=== PATIENT | female | born 1970 | race African-American/Black ===

== ENCOUNTER 2017-11-03 10:47 | Emergency (ER) | payer OTHER ==
[2017-11-03] MEDS ORDERED: Ketorolac Tromethamine 30 MG/ML VIAL ONE (11:19)
[2017-11-03 11:24] LABS: #Eosinphils 0.2 thou/uL (0.0-0.7); #Lymphocytes 2.1 thou/uL (1.20-3.40); #Monocytes 0.4 thou/uL (0.11-0.59); #Neutrophils 2.6 thou/uL (1.40-6.50); %Basophils 0.2 % (0.0-1.0); %Eosinophils 4.2 % (0.0-10.0); %Lymphocytes 38.6 % (21.0-51.0); Hemoglobin 12.4 g/dL (12.0-16.0); Mean Corpuscular HGB CONC 31.7 g/dL (32.0-36.0); Mean Corpuscular Hemoglobin 28.3 pg (27.0-31.0); Mean Corpuscular Volume 89.3 fl (81.0-99.0); Mean Platelet Volume 7.9 fL (7.4-10.4); Platelet Count 203 thou/uL (130-400); RBC Distribution Width 11.4 % (11.5-14.5); White Blood Cell (WBC) Count 5.4 thou/uL (4.8-10.8)
[2017-11-03 11:45] LABS: ALT (SGPT) 11 U/L (8-55); AST (SGOT) 13 U/L (5-34); Albumin 3.4 g/dL (3.5-5.0); Alkaline Phosphatase 50 U/L (40-150); Anion Gap 10 mmol/L (10-20); BUN (Urea Nitrogen) 12 mg/dL (7.0-18.7); Bilirubin, Total 0.3 mg/dL (0.2-1.2); Calc. Creatinine Clearance 0 mL/min (70-130); Calcium 8.6 mg/dL (7.8-10.44); Carbon Dioxide 23 mmol/L (22-29); Chloride 108 mmol/L (98-107); Estimated GFR-MDRD Greater than 90; Globulin 3.2 g/dL (2.4-3.5); Glucose 77 mg/dL (70-105); Potassium 3.6 mmol/L (3.5-5.1); Protein, Total 6.6 g/dL (6.0-8.3); Sodium 137 mmol/L (136-145)
[2017-11-03 11:50] LABS: CKMB 0.5 ng/mL (0-6.6); Troponin I Less than 0.010 ng/mL (< 0.028)
--- NOTE | 2017-11-03 12:05 | RAD ---
PORTABLE CHEST ONE VIEW: Date: 11-03-17 Time: 11:21 a.m. History: Chest pain, cough. FINDINGS: Comparison made with exam of 03-23-17. The heart size is enlarged. No confluent areas of consolidation, pneumothorax, hortencia pleural edema or pleural effusions are seen. IMPRESSION: No radiographic evidence of acute cardiopulmonary process. POS: [facility]
== END 2017-11-03 12:12 | disposition home or self-care (01) ==
LOC: ERS 10:47
DX: B34.9 Viral infection, unspecified (principal); R07.9 Chest pain, unspecified; I10 Essential (primary) hypertension; F32.9 Major depressive disorder, single episode, unspecified; F41.9 Anxiety disorder, unspecified; Z79.899 Other long term (current) drug therapy
CPT/HCPCS: 36415; 71045; 80053; 82553; 84484; 85025; 93005; J1885

== ENCOUNTER 2017-11-17 08:10 | Outpatient (CLI) | payer OTHER | END 2017-11-17 08:11 | disposition home or self-care (01) | LOC: BICMAMMO 08:10 | PROVIDERS: ATTEND Anesthesiology | DX: R92.8 Other abnormal and inconclusive findings on diagnostic imaging of breast (principal); Z53.8 Procedure and treatment not carried out for other reasons | CPT/HCPCS: 77066; G0279 ==

== ENCOUNTER 2018-04-13 10:09 | Outpatient (CLI) | payer OTHER ==
--- NOTE | 2018-04-13 12:44 | MRI ---
MRI LUMBAR SPINE WITHOUT CONTRAST: Date: 04/13/18 HISTORY: M54.16, lumbar radiculopathy. COMPARISON: None. FINDINGS: The aortic contour is nonaneurysmal. No retroperitoneal adenopathy. Paraspinal musculature is symmetr ic. No hydronephrosis. The background marrow signal is without infiltrative process. Normal lumbar lordosis. The conus medullaris terminates at the superior end plate of L1. Levels are as follows: T12-L1: Normal disc. No neural foraminal or spinal canal narrowing. L1-2: Normal disc. No neural foraminal or spinal canal narrowing. There is hemangioma within the L1 vertebr al body. L2-3: Normal disc. No neural foraminal or spinal canal narrowing. There is a T1 and T2 hyperintense focus w ithin the spinous process suggesting fat. L3-4: There is low grade disc desiccation. Low grade left lateral recess and subforaminal and posterior dis c protrusion causing mild left-sided neural foraminal narrowing. The spinal canal measures approximat rebecca 8.0 mm. L4-5: Moderate disc desiccation. There is a central posterior disc protrusion with paracentral extension. S geronimo canal measures approximately 9.0 mm. Mild bilateral neural foraminal narrowing. Moderate facet arthrosis. L5-S1: Moderate disc desiccation. There is essential posterior disc protrusion. Mild facet arthrosis. Mild t o moderate bilateral neural foraminal narrowing. IMPRESSION: Mild to moderate spondylosis as described above. POS: [facility]
== END 2018-04-13 10:10 | disposition home or self-care (01) ==
LOC: TBSIIMAG 10:09
PROVIDERS: ATTEND Orthopaedic Surgery
DX: M47.26 Other spondylosis with radiculopathy, lumbar region (principal); M54.5 Low back pain
CPT/HCPCS: 72148

== ENCOUNTER 2018-12-16 10:01 | Outpatient (CLI) | payer OTHER ==
--- NOTE | 2018-12-16 10:29 | RAD ---
CHEST 2 VIEWS: Date: 12/16/18 COMPARISON: 11/03/17. HISTORY: Dyspnea. FINDINGS: Minimal cardiomegaly. No confluent pneumonia, overt edema, or pleural effusion. IMPRESSION: Mild cardiomegaly. No evidence for other significant acute process. Atherosclerosis of aorta. POS: [facility]
== END 2018-12-16 10:02 | disposition home or self-care (01) ==
LOC: RAD 10:01
PROVIDERS: ATTEND Internal Medicine Critical Care Medicine
DX: R06.00 Dyspnea, unspecified (principal); I51.7 Cardiomegaly; I70.0 Atherosclerosis of aorta
CPT/HCPCS: 71046

== ENCOUNTER 2018-12-21 09:08 | Outpatient (CLI) | payer OTHER | END 2018-12-21 09:09 | disposition home or self-care (01) | LOC: DTY/OP 09:08 | PROVIDERS: ATTEND Specialist | DX: Z01.818 Encounter for other preprocedural examination (principal); E66.01 Morbid (severe) obesity due to excess calories | CPT/HCPCS: 97802 ==

== ENCOUNTER 2019-01-04 08:41 | Outpatient (CLI) | payer OTHER ==
--- NOTE | 2019-01-04 09:11 | MMO ---
Bilateral MAMMO Bilat Screen DDI. CLINICAL HISTORY: Patient is 48 years old and is seen for screening. The patient has no family history of breast cancer. The patient has no personal history of cancer. VIEWS: The views performed were: bilateral craniocaudal and bilateral mediolateral oblique. FILMS COMPARED: The present examination has been compared to prior imaging studies performed at [facility] on 11/17/2017, and at [facility] on 10/05/2014 and 10/17/2014. This study has been interpreted with the assistance of computer-aided detection. MAMMOGRAM FINDINGS: There are scattered fibroglandular densities. There are two stable oval masses with circumscribed margins seen in the right breast. There are no suspicious masses, suspicious calcifications, or new areas of architectural distortion. IMPRESSION: THERE IS NO MAMMOGRAPHIC EVIDENCE OF MALIGNANCY. A ROUTINE FOLLOW-UP MAMMOGRAM IN 1 YEAR IS RECOMMENDED. ACR BI-RADS Category 2 - Benign finding MAMMOGRAPHY NOTE: 1. A negative mammogram report should not delay a biopsy if a dominant of clinically suspicious mass is present. 2. Approximately 10% to 15% of breast cancers are not detected by mammography. 3. Adenosis and dense breasts may obscure an underlying neoplasm.
== END 2019-01-04 08:42 | disposition home or self-care (01) ==
LOC: BICMAMMO 08:41
PROVIDERS: ATTEND Family Medicine
DX: Z12.31 Encounter for screening mammogram for malignant neoplasm of breast (principal)
CPT/HCPCS: 77067

== ENCOUNTER 2019-02-16 22:16 | Observation (INO) | payer OTHER ==
[2019-02-16] MEDS ORDERED: Albuterol Sulfate 2.5 mg/3 ml Neb ONE (22:30)
[2019-02-16] MEDS ORDERED: Magnesium 2 GM/50 ML BAG (IN WATER) ONE (22:37)
[2019-02-16] MEDS ORDERED: Dexamethasone 10 MG/ML VIAL ONE (22:39)
[2019-02-16 22:43] LABS: Actual Bicarbonate (HCO3a) 20.7 mEq/L (22-28); Analyzer IN Cardio ER; Base Excess (BEa) -4.5 mEq/L (-2.0 to +3.0); CO2 Tension 38.5 mmHg (35.0-45.0); Calcium, Ionized 1.19 mmol/L (1.12-1.30); Carboxyhemoglobin (COHb) 0.3 gm% (0.0-3.0); Hemoglobin (Hb) 13.3 g/dL (12.0-16.0); O2 Tension (PaO2) 178.3 mmHg (80.0-100.0); Potassium - ABG Lab 3.28 mmol/L (3.70-5.30); pH, Arterial 7.35 (7.35-7.45)
--- NOTE | 2019-02-16 22:45 | RAD ---
PORTABLE CHEST: 02/16/19 HISTORY: Dyspnea. COMPARISON: 11/03/17. Lungs appear clear. No infiltrate. Heart size is mildly prominent but stable. IMPRESSION: No acute process. POS: [facility]
[2019-02-16 22:47] LABS: ALV-art Gradient -76.695 (0-20); Puncture Site LRA
[2019-02-16 23:04] LABS: #Basophils 0.1 thou/uL (0.0-0.2); #Eosinphils 0.5 thou/uL (0.0-0.7); #Lymphocytes 3.1 thou/uL (1.20-3.40); #Monocytes 0.5 thou/uL (0.11-0.59); #Neutrophils 3.9 thou/uL (1.40-6.50); %Basophils 1.4 % (0.0-1.0); %Eosinophils 5.8 % (0.0-10.0); %Lymphocytes 38.6 % (21.0-51.0); %Monocytes 6.2 % (0.0-10.0); Hemoglobin 12.8 g/dL (12.0-16.0); Mean Corpuscular HGB CONC 32.2 g/dL (32.0-36.0); Mean Corpuscular Hemoglobin 28.1 pg (27.0-31.0); Mean Corpuscular Volume 87.1 fL (78.0-98.0); Mean Platelet Volume 7.9 fL (7.4-10.4); Platelet Count 202 thou/uL (130-400); RBC Distribution Width 11.7 % (11.5-14.5); Red Blood Cell (RBC) Count 4.57 mill/uL (4.20-5.40); White Blood Cell (WBC) Count 8.1 thou/uL (4.8-10.8)
[2019-02-16 23:26] LABS: ALT (SGPT) 10 U/L (8-55); AST (SGOT) 12 U/L (5-34); Alkaline Phosphatase 62 U/L (40-150); Anion Gap 15 mmol/L (10-20); BUN (Urea Nitrogen) 14 mg/dL (7.0-18.7); Bilirubin, Total 0.3 mg/dL (0.2-1.2); CK (CPK) 88 U/L (29-168); Calc. Creatinine Clearance 0 mL/min (70-130); Calcium 9.1 mg/dL (7.8-10.44); Carbon Dioxide 23 mmol/L (22-29); Chloride 103 mmol/L (98-107); Estimated GFR-MDRD Greater than 90; Glucose 83 mg/dL (70-105); Lipase 18 U/L (8-78); Potassium 3.6 mmol/L (3.5-5.1); Sodium 137 mmol/L (136-145)
[2019-02-17 00:48] VITALS: BMI 43.9
[2019-02-17] MEDS ORDERED: Sodium Chloride 0.9% 1,000 ML IV SCH (00:54)
[2019-02-17] MEDS ORDERED: Ondansetron ODT 4 MG TAB SL PRN (00:54)
[2019-02-17] MEDS ORDERED: Ondansetron PF 4 MG/2 ML Vial IVP PRN (00:54)
[2019-02-17] MEDS ORDERED: Acetaminophen 650 MG Suppository PR PRN (01:08)
[2019-02-17] MEDS ORDERED: Senokot S 8.6-50 MG TAB PO PRN (01:08)
[2019-02-17] MEDS: Acetaminophen 325 MG TAB PO PRN ×3 (01:31→20:50)
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
[2019-02-17 05:56] LABS: #Lymphocytes 0.8 thou/uL (1.20-3.40); #Monocytes 0.1 thou/uL (0.11-0.59); #Neutrophils 4.2 thou/uL (1.40-6.50); %Basophils 0.2 % (0.0-1.0); %Eosinophils 0.2 % (0.0-10.0); %Monocytes 1.7 % (0.0-10.0); %Neutrophils 82.9 % (42.0-75.0); Hemoglobin 11.9 g/dL (12.0-16.0); Mean Corpuscular HGB CONC 32.5 g/dL (32.0-36.0); Mean Corpuscular Hemoglobin 28.2 pg (27.0-31.0); Mean Corpuscular Volume 86.7 fL (78.0-98.0); Mean Platelet Volume 8.7 fL (7.4-10.4); Platelet Count 190 thou/uL (130-400); RBC Distribution Width 11.7 % (11.5-14.5); Red Blood Cell (RBC) Count 4.21 mill/uL (4.20-5.40); White Blood Cell (WBC) Count 5.1 thou/uL (4.8-10.8)
[2019-02-17 06:13] LABS: Anion Gap 10 mmol/L (10-20); BUN (Urea Nitrogen) 13 mg/dL (7.0-18.7); Calc. Creatinine Clearance 193 mL/min (70-130); Calcium 8.9 mg/dL (7.8-10.44); Carbon Dioxide 24 mmol/L (22-29); Chloride 106 mmol/L (98-107); Estimated GFR-MDRD Greater than 90; Glucose 122 mg/dL (70-105); Potassium 3.5 mmol/L (3.5-5.1); Sodium 136 mmol/L (136-145)
[2019-02-17] MEDS: Benzonatate 100 MG CAP PO SCH ×3 (08:07→19:39)
[2019-02-17] MEDS: guaiFENesin ER 600 MG TAB PO SCH ×2 (08:08→19:39)
[2019-02-17] MEDS: Furosemide 20 MG TAB PO SCH (08:08)
[2019-02-17] MEDS: Famotidine/PF 20 mg/2ml Vial SLOW IVP SCH ×2 (08:08→19:39)
[2019-02-17] MEDS: Propranolol HCl 20 MG TAB PO SCH ×2 (08:08→19:39)
[2019-02-17] MEDS: Enoxaparin Sodium 30 MG/0.3 ML SYRINGE SC SCH (08:09)
[2019-02-17] MEDS ORDERED: Dexamethasone 4 mg/ml Vial SLOW IVP SCH (09:00)
[2019-02-17] MEDS: Doxycycline 100 MG CAP PO SCH ×2 (10:47→19:39)
--- NOTE | 2019-02-17 11:14 | PDOC.PN ---
- Subjective Encounter Start Date: 02/17/19 Encounter Start Time: 09:00 -: old records requested/rev pt has dry cough, dyspnea and chest wall pain from coughing - Objective Resuscitation Status - Order Detail: 02/17/19 01:08 Resuscitation Status Routine Co-Sign Provider: Resuscitation Status: FULL: Full Resuscitation MAR Reviewed: Yes Vital Signs & Weight: Vital Signs (12 hours) Temp Pulse Resp BP Pulse Ox 02/17/19 10:32 81 18 98 02/17/19 07:34 97.8 F 79 18 126/83 97 02/17/19 07:03 91 20 97 02/17/19 04:00 97.7 F 92 18 128/85 98 02/17/19 03:00 102 H 18 99 02/17/19 00:46 97 02/17/19 00:45 97.2 F L 81 20 116/77 97 Weight Weight 272 lb 5 oz I&O: 02/16/19 02/17/19 02/18/19 06:59 06:59 06:59 Intake Total 480 Balance 480 Result Diagrams: 02/17/19 04:55 02/17/19 04:55 Radiology Reviewed by me: Yes (chest xray reviwed) Phys Exam - Physical Examination Constitutional: NAD HEENT: PERRLA, moist MMs, sclera anicteric Neck: no JVD, supple Respiratory: no wheezing, no rhonchi coarse sound+ Cardiovascular: RRR, no significant murmur, no rub Gastrointestinal: soft, non-tender, no distention, positive bowel sounds obesity+ Musculoskeletal: no edema, pulses present Neurological: non-focal, normal sensation, moves all 4 limbs Lymphatic: no nodes Psychiatric: normal affect, A&O x 3 Skin: no rash, normal turgor Dx/Plan (1) Acute bronchitis Code(s): J20.9 - ACUTE BRONCHITIS, UNSPECIFIED Status: Acute (2) Morbid obesity with BMI of 40.0-44.9, adult Code(s): E66.01 - MORBID (SEVERE) OBESITY DUE TO EXCESS CALORIES; Z68.41 - BODY MASS INDEX (BMI) 40.0-44.9, ADULT Status: Chronic - Plan cont current plan of care, plan discussed w/ family, continue antibiotics, respiratory therapy * add prednisone 40 mg po daily * add doxycycline 100 mg po bid * medication reviewed as below * symptomatic treatment * discussed with daughter * viral panel is pending * continue duoneb. Review of Systems - Review of Systems ENT: negative: Ear Pain, Ear Discharge, Nose Pain, Nose Discharge, Nose Congestion, Mouth Pain, Mouth Swelling, Throat Pain, Throat Swelling, Other Respiratory: Cough, Dry, Shortness of Breath. negative: Hemoptysis, SOB with Excertion, Pleuritic Pain, Sputum, Wheezing Cardiovascular: negative: chest pain, palpitations, orthopnea, paroxysmal nocturnal dyspnea, edema, light headedness, other Gastrointestinal: negative: Nausea, Vomiting, Abdominal Pain, Diarrhea, Constipation, Melena, Hematochezia, Other Genitourinary: negative: Dysuria, Frequency, Incontinence, Hematuria, Retention , Other Musculoskeletal: negative: Neck Pain, Shoulder Pain, Arm Pain, Back Pain, Hand Pain, Leg Pain, Foot Pain, Other Skin: negative: Rash, Lesions, Shamir, Bruising, Other - Medications/Allergies Allergies/Adverse Reactions: Allergies Allergy/AdvReac Type Severity Reaction Status Date / Time naproxen Allergy Verified 02/17/19 00:47 Sulfa (Sulfonamide Allergy Verified 02/17/19 00:47 Antibiotics) Medications: Current Medications Acetaminophen (Tylenol) 650 mg PO Q4H PRN PRN Reason: Headache/Fever/Mild Pain (1-3) Last Admin: 02/17/19 01:31 Dose: 650 mg Acetaminophen (Tylenol) 650 mg [place] Q4H PRN PRN Reason: Headache/Fever/Mild Pain (1-3) Albuterol/Ipratropium (Duoneb) 3 ml NEB Q2H PRN PRN Reason: SOB &/or Wheezing Stop: 02/17/19 12:03 Albuterol/Ipratropium (Duoneb) 3 ml NEB [id number] [facility] Last Admin: 02/17/19 10:32 Dose: 3 ml Benzonatate (Tessalon) 100 mg PO TID [facility] Last Admin: 02/17/19 08:07 Dose: 100 mg Doxycycline Hyclate (Vibramycin) 100 mg PO BID [facility] Last Admin: 02/17/19 10:47 Dose: 100 mg Enoxaparin Sodium (Lovenox) 30 mg SC 0900 [facility] Last Admin: 02/17/19 08:09 Dose: 30 mg Famotidine (Pepcid) 20 mg SLOW IVP Q12HR [facility] Last Admin: 02/17/19 08:08 Dose: 20 mg Fluticasone Propionate (Flonase Nasal Vidor) 0 gm NASAL DAILY [facility] Furosemide (Lasix) 40 mg PO DAILY [facility] Last Admin: 02/17/19 08:08 Dose: 40 mg Guaifenesin (Mucinex) 600 mg PO Q12HR [facility] Last Admin: 02/17/19 08:08 Dose: 600 mg Ondansetron HCl (Zofran) 4 mg IVP Q6H PRN PRN Reason: Nausea/Vomiting Stop: 02/17/19 12:03 Ondansetron HCl (Zofran Odt) 4 mg SL Q6H PRN PRN Reason: Nausea/Vomiting Stop: 02/17/19 12:03 Prednisone (Prednisone) 40 mg PO QA-[facility] Propranolol HCl (Inderal) 20 mg PO BID [facility] Last Admin: 02/17/19 08:08 Dose: 20 mg Senna/Docusate Sodium (Senokot S) 2 tab PO BID PRN PRN Reason: Constipation Sodium Chloride (Flush - Normal Saline) 10 ml IVF Q12HR [facility] Last Admin: 02/17/19 08:12 Dose: 10 ml Sodium Chloride (Flush - Normal Saline) 10 ml IVF PRN PRN PRN Reason: Saline Flush
[2019-02-17] MEDS: Fluticasone Propionate Nasal Spray 16 gm Bottle NASAL SCH (12:39)
[2019-02-18] MEDS ORDERED: predniSONE 20 MG TAB PO SCH (08:00)
[2019-02-18] MEDS: Propranolol HCl 20 MG TAB PO SCH (09:32)
[2019-02-18] MEDS: guaiFENesin ER 600 MG TAB PO SCH (09:33)
[2019-02-18] MEDS: Doxycycline 100 MG CAP PO SCH (09:33)
[2019-02-18] MEDS: Famotidine/PF 20 mg/2ml Vial SLOW IVP SCH (09:33)
[2019-02-18] MEDS: Fluticasone Propionate Nasal Spray 16 gm Bottle NASAL SCH (09:33)
[2019-02-18] MEDS: Benzonatate 100 MG CAP PO SCH (09:33)
[2019-02-18] MEDS: Furosemide 20 MG TAB PO SCH (09:33)
[2019-02-18] MEDS: Enoxaparin Sodium 30 MG/0.3 ML SYRINGE SC SCH (09:34)
[2019-02-18 12:05] VITALS: BP 144/89; TEMP 97.6
== END 2019-02-18 13:25 | disposition home or self-care (01) ==
LOC: ERS 22:16 → T4-A 02-17 00:32
PROVIDERS: ADMIT Internal Medicine; ATTEND Internal Medicine
DX: J20.9 Acute bronchitis, unspecified (principal); I10 Essential (primary) hypertension; G89.29 Other chronic pain; M54.9 Dorsalgia, unspecified; F41.9 Anxiety disorder, unspecified; F32.9 Major depressive disorder, single episode, unspecified; E66.01 Morbid (severe) obesity due to excess calories; Z68.41 Body mass index [BMI] 40.0-44.9, adult; Z79.899 Other long term (current) drug therapy; Z88.2 Allergy status to sulfonamides; Z88.6 Allergy status to analgesic agent; Z98.890 Other specified postprocedural states
CPT/HCPCS: 36415; 71045; 80048; 80053; 82550; 82805; 83605; 83690; 83880; 84484; 85025; 85379; 87040; 87633; 93005; 94640; 96365; 96367; 96372; 96375; 96376; G0378; J1100; J1650; J1956; J3475; J7512; J7611; J7620; S0028

== ENCOUNTER 2019-04-20 09:00 | Emergency (ER) | payer OTHER ==
--- NOTE | 2019-04-20 10:02 | RAD ---
XR Chest Pa Lat STANDARD HISTORY: Cough, shortness of breath COMPARISON: 02/01/2015 FINDINGS: The heart size is borderline. The aorta is tortuous. The lungs are well expanded without lo bar consolidation, pneumatosis, hortencia edema or pleural effusions. IMPRESSION: No radiographic evidence of acute cardiopulmonary process.
[2019-04-20] MEDS ORDERED: predniSONE 20 MG TAB ONE (10:03)
[2019-04-20] MEDS ORDERED: Ketorolac Tromethamine 30 MG/ML VIAL ONE (10:11)
== END 2019-04-20 12:22 | disposition home or self-care (01) ==
LOC: ERS 09:00
DX: J45.901 Unspecified asthma with (acute) exacerbation (principal); M94.0 Chondrocostal junction syndrome [Tietze]; I10 Essential (primary) hypertension; F32.9 Major depressive disorder, single episode, unspecified; F41.9 Anxiety disorder, unspecified; Z79.899 Other long term (current) drug therapy; Z79.51 Long term (current) use of inhaled steroids
CPT/HCPCS: 71046; 84484; 93005; 94640; 96374; J1885; J7512; J7620

== ENCOUNTER 2019-05-07 04:06 | Observation (INO) | payer OTHER ==
[2019-05-07] MEDS ORDERED: methylPREDNISolone Sod Succ/PF 125 MG/2 ML VIAL ONE (04:21)
[2019-05-07] MEDS ORDERED: Ketorolac Tromethamine 30 MG/ML VIAL ONE (04:46)
[2019-05-07 04:50] LABS: #Eosinphils 0.5 thou/uL (0.0-0.7); #Lymphocytes 2.6 thou/uL (1.20-3.40); #Monocytes 0.5 thou/uL (0.11-0.59); #Neutrophils 3.2 thou/uL (1.40-6.50); %Basophils 0.2 % (0.0-1.0); %Eosinophils 6.7 % (0.0-10.0); %Lymphocytes 38.6 % (21.0-51.0); %Monocytes 7.9 % (0.0-10.0); %Neutrophils 46.6 % (42.0-75.0); Hemoglobin 13.4 g/dL (12.0-16.0); Mean Corpuscular HGB CONC 32.9 g/dL (32.0-36.0); Mean Corpuscular Volume 85.2 fL (78.0-98.0); Platelet Count 215 thou/uL (130-400); RBC Distribution Width 11.6 % (11.5-14.5); Red Blood Cell (RBC) Count 4.78 mill/uL (4.20-5.40); White Blood Cell (WBC) Count 6.8 thou/uL (4.8-10.8)
[2019-05-07 05:06] LABS: ALT (SGPT) 12 U/L (8-55); AST (SGOT) 14 U/L (5-34); Alkaline Phosphatase 73 U/L (40-150); Anion Gap 15 mmol/L (10-20); BUN (Urea Nitrogen) 15 mg/dL (9.8-20.1); Bilirubin, Total 0.2 mg/dL (0.2-1.2); Calc. Creatinine Clearance 0 mL/min (70-130); Calcium 9.3 mg/dL (7.8-10.44); Carbon Dioxide 22 mmol/L (22-29); Chloride 106 mmol/L (98-107); Estimated GFR-MDRD Greater than 90; Glucose 93 mg/dL (70-105); Potassium 3.9 mmol/L (3.5-5.1); Sodium 139 mmol/L (136-145)
[2019-05-07] MEDS ORDERED: cefTRIAXone\\ROCEPHIN 1 GM VIAL ONE (05:14)
[2019-05-07] MEDS ORDERED: Acetaminophen 325 MG TAB PO PRN ×2 (06:48→07:39)
[2019-05-07] MEDS ORDERED: Ondansetron ODT 4 MG TAB SL PRN (06:48)
[2019-05-07] MEDS ORDERED: HYDROcodone/Acetaminophen 5/325 mg Tablet PO PRN ×2 (06:48)
[2019-05-07] MEDS ORDERED: Ondansetron PF 4 MG/2 ML Vial IVP PRN ×2 (06:48→07:39)
[2019-05-07] MEDS ORDERED: Albuterol Sulfate 2.5 mg/3 ml Neb NEB PRN (06:49)
[2019-05-07 06:59] VITALS: BMI 42.3
[2019-05-07] MEDS ORDERED: Sodium Chloride 0.65% Nasal 44 ML BOT EA NARE PRN (07:39)
[2019-05-07] MEDS ORDERED: cloNIDine 0.1 MG TAB PO PRN (07:39)
[2019-05-07] MEDS ORDERED: Loperamide HCl 2 MG CAP PO PRN (07:39)
[2019-05-07] MEDS ORDERED: Senokot S 8.6-50 MG TAB PO PRN (07:39)
[2019-05-07] MEDS ORDERED: Cepastat Lozenges 1 LOZ PO PRN (07:39)
[2019-05-07] MEDS ORDERED: Loratadine 10 MG TAB PO PRN (07:39)
[2019-05-07] MEDS ORDERED: Artificial Tears 18 DROP/0.9 ML EA EYE PRN (07:39)
[2019-05-07] MEDS ORDERED: Zolpidem Tartrate 5 MG TAB PO PRN (07:39)
[2019-05-07] MEDS ORDERED: hydrALAZINE 20 MG/ML VIAL SLOW IVP PRN (07:39)
[2019-05-07] MEDS ORDERED: Ondansetron ODT 4 MG TAB PO PRN (07:39)
[2019-05-07] MEDS ORDERED: Bisacodyl 10 MG SUPP PR PRN (07:39)
[2019-05-07] MEDS ORDERED: Diabetic Tussin 200 MG/10 ML UDCUP PO PRN (07:39)
[2019-05-07] MEDS ORDERED: Calcium Carbonate 500 MG ChewTAB PO PRN (07:39)
[2019-05-07] MEDS ORDERED: Bacteriostatic Water 30 ML VIAL FS PRN (07:44)
[2019-05-07 07:58] LABS: Troponin I Less than 0.010 ng/mL (< 0.028)
[2019-05-07] MEDS: Carvedilol 6.25 MG TAB PO SCH ×2 (08:29→23:04)
[2019-05-07] MEDS: HYDROcodone/Acetaminophen 5/325 mg Tablet PO PRN ×2 (08:30→18:27)
[2019-05-07] MEDS: Doxycycline 100 MG CAP PO SCH ×2 (08:30→23:03)
[2019-05-07] MEDS: Furosemide 20 MG TAB PO SCH (08:30)
[2019-05-07] MEDS: guaiFENesin ER 600 MG TAB PO SCH ×2 (08:30→23:03)
--- NOTE | 2019-05-07 08:46 | RAD ---
PORTABLE CHEST ONE VIEW: 05/07/2019 4:29 a.m. HISTORY: Dyspnea. Cough. COMPARISON: 04/20/2019 FINDINGS: The heart size is borderline. No lobar consolidation, pneumothoraces, hortencia pulmonary edema, or larg e effusions are seen. POS: [facility]
[2019-05-07] MEDS: Fluticasone Propionate Nasal Spray 16 gm Bottle NASAL SCH (11:00)
[2019-05-07] MEDS ORDERED: methylPREDNISolone Sod Succ/PF 125 MG/2 ML VIAL IVP SCH (12:00)
[2019-05-07] MEDS: methylPREDNISolone Sod Succ 40 MG VIAL IVP SCH ×2 (12:34→18:27)
[2019-05-07] MEDS: Mometasone/Formoterol 120 PUFF INHALER INH SCH (18:39)
[2019-05-07] MEDS ORDERED: Montelukast Sodium 10 mg Tablet PO SCH (21:00)
[2019-05-08] MEDS: methylPREDNISolone Sod Succ 40 MG VIAL IVP SCH ×4 (00:26→17:02)
[2019-05-08 05:07] LABS: #Basophils 0.2 thou/uL (0.0-0.2); #Eosinphils 0.1 thou/uL (0.0-0.7); #Lymphocytes 0.7 thou/uL (1.20-3.40); #Monocytes 0.2 thou/uL (0.11-0.59); #Neutrophils 11.5 thou/uL (1.40-6.50); %Basophils 1.3 % (0.0-1.0); %Eosinophils 1.1 % (0.0-10.0); %Lymphocytes 5.8 % (21.0-51.0); %Monocytes 1.4 % (0.0-10.0); %Neutrophils 90.3 % (42.0-75.0); Hemoglobin 12.2 g/dL (12.0-16.0); Mean Corpuscular HGB CONC 33.1 g/dL (32.0-36.0); Mean Corpuscular Hemoglobin 28.6 pg (27.0-31.0); Mean Corpuscular Volume 86.3 fL (78.0-98.0); Mean Platelet Volume 8.7 fL (7.4-10.4); Platelet Count 197 thou/uL (130-400); RBC Distribution Width 11.8 % (11.5-14.5); Red Blood Cell (RBC) Count 4.28 mill/uL (4.20-5.40); White Blood Cell (WBC) Count 12.7 thou/uL (4.8-10.8)
[2019-05-08 05:22] LABS: Anion Gap 14 mmol/L (10-20); BUN (Urea Nitrogen) 16 mg/dL (9.8-20.1); Calc. Creatinine Clearance 167 mL/min (70-130); Calcium 9.1 mg/dL (7.8-10.44); Carbon Dioxide 19 mmol/L (22-29); Chloride 107 mmol/L (98-107); Estimated GFR-MDRD Greater than 90; Glucose 199 mg/dL (70-105); Potassium 3.8 mmol/L (3.5-5.1); Sodium 136 mmol/L (136-145)
[2019-05-08] MEDS ORDERED: cefTRIAXone\\ROCEPHIN 1 GM in Sodium Chloride 0.9% 100 ML IVPB SCH (06:00)
[2019-05-08] MEDS: Mometasone/Formoterol 120 PUFF INHALER INH SCH (07:10)
[2019-05-08] MEDS: Furosemide 20 MG TAB PO SCH (07:56)
[2019-05-08] MEDS: Carvedilol 6.25 MG TAB PO SCH (07:57)
[2019-05-08] MEDS: Doxycycline 100 MG CAP PO SCH (07:57)
[2019-05-08] MEDS: guaiFENesin ER 600 MG TAB PO SCH (07:57)
[2019-05-08] MEDS: Fluticasone Propionate Nasal Spray 16 gm Bottle NASAL SCH (07:58)
[2019-05-08 16:29] VITALS: BP 135/73; TEMP 97.4
--- NOTE | 2019-05-09 00:59 | DIS ---
DATE OF ADMISSION: 05/07/2019 DATE OF DISCHARGE: 05/08/2019 DISCHARGE DIAGNOSES: 1. Acute bronchitis. 2. Hypertension. 3. Obesity. HOSPITAL COURSE: The patient is a 49-year-old female who initially presented to the hospital on 05/07, with complaints of chest tightness and wheezing. She had a chest x-ray which did not show any acute abnormalities. She was given breathing treatments. Her symptoms resolved. She was not found to be hypoxic. The patient was able to ambulate without any difficulties. She was initially treated for prophylactic antibiotics and steroids. The patient will be discharged home with Medrol Dosepak and another 5 days of oral antibiotics. I have advised her to follow up with her primary care doctor. The patient denies any history of asthma or any smoking history. She denies exposures to any allergy. HOME MEDICATIONS: Her home medications will be as of the following. She is going to take, 1. Doxycycline 100 mg b.i.d. 2. Pepcid 20 mg b.i.d. 3. Florastor 250 daily. 4. Methylprednisolone Dosepak. 5. She is on propranolol 20 mg b.i.d. 6. Cetirizine 10 mg daily. 7. Lasix 80 mg daily. 8. Symbicort two puffs b.i.d. 9. Albuterol as needed. I have advised her to stop taking the Coreg because she is on Coreg and propranolol for unknown reasons and she states that she does not know why she is taking both of the medications. PHYSICAL EXAMINATION: VITAL SIGNS: As of the following; temperature of 98.8, 80, 20, 96% on room air, 135/73. GENERAL: She is awake, alert, and oriented x3. Does not appear in distress. CV: S1 and S2 present. No murmurs, rubs, or gallops. ABDOMEN: Soft and nontender. Bowel sounds present x2. EXTREMITIES: No edema. Pedal pulses are present x2. Again, she will be discharged home. She will follow up with her primary and also I have advised her that I have discontinued her carvedilol. Her BNP was normal at 98.2, and her troponins x3 were negative. Job ID: [id number]
--- NOTE | 2019-05-09 07:20 | HP ---
PRIMARY CARE PHYSICIAN: Uriel Singh MD. REASON FOR ADMISSION: Asthma exacerbation. HISTORY OF PRESENT ILLNESS: A 49-year-old female, who has underlying history of moderate persistent asthma, hypertension, obesity, who presented to emergency room with a complaint of increasing shortness of breath and wheezing, which was started last night. The patient reports that for last 2 to 3 days, she was experiencing more and more chest tightness and wheezing and shortness of breath. She was trying her home medication, but she was not improving and last night, she got more worse and that is why she decided to come to emergency room for evaluation. The patient also had a recent emergency room visit for cough. The patient reports that lately, she was having increasing amount of cough and that was causing her chest wall and abdominal wall discomfort. The patient did not have any fever, chills, hemoptysis. She does report cough with a scant amount of white brown sputum. She denies any palpitation, dizziness, or syncope. She denies any orthopnea, PND, or leg swelling. She denies any recent travel or sick exposure. She denies any immobilization. She denies any calf tenderness. She denies any pleuritic chest pain. In the emergency room, the patient's chest x-ray was unremarkable. The patient was given respiratory therapy, but she was not improving and that is why we decided to keep this patient in hospital. EMERGENCY ROOM COURSE: The patient has received Rocephin 1 g DuoNeb therapy, Toradol 15 mg DuoNeb therapy, as well as Solu-Medrol 125 mg. REVIEW OF SYSTEMS: CONSTITUTIONAL: Negative for weight loss or gain, ability to conduct usual activities. SKIN: Negative for rash, itching. EYES: Negative for double vision, pain. ENT/MOUTH: Negative for nose bleeding, neck stiffness, pain, tenderness. CARDIOVASCULAR: Negative for palpitations, dyspnea on exertion, orthopnea. RESPIRATORY: Negative for shortness of breath, wheezing, cough, hemoptysis, fever or night sweats. GASTROINTESTINAL: Negative for poor appetite, abdominal pain, heartburn, nausea, vomiting, constipation, or diarrhea. GENITOURINARY: Negative for urgency, frequency, dysuria, nocturia. MUSCULOSKELETAL: Negative for pain, swelling. NEUROLOGIC/PSYCHIATRIC: Negative for anxiety, depression. ALLERGY/IMMUNOLOGIC: Negative for skin rash, bleeding tendency. Please see my HPI for pertinent positives and negatives. All other review of systems reviewed and negative except as mentioned in HPI. PAST MEDICAL HISTORY: 1. Hypertension. 2. Moderate persistent asthma. 3. Chronic low back pain. 4. Obesity. PAST PSYCHIATRIC HISTORY: Anxiety and depression. PAST SURGICAL HISTORY: 1. Hysterectomy. 2. Appendicectomy. 3. Right wrist surgery. SOCIAL HISTORY: The patient drinks alcohol socially. She denies any smoking. She denies any other illicit drug abuse. ALLERGIES: NAPROXEN AND SULFA DRUGS. FAMILY HISTORY: No strong family history of premature coronary artery disease, stroke, or cancer. CURRENT HOME MEDICATIONS: 1. ProAir HFA 2 puffs q.4 hourly p.r.n. 2. Symbicort 2 puffs inhalation b.i.d. 3. Coreg 6.25 mg b.i.d. 4. Cetirizine 10 mg daily. 5. Lasix 80 mg daily. 6. Mobic 7.5 mg p.o. daily p.r.n. 7. Propranolol 20 mg p.o. b.i.d. PHYSICAL EXAMINATION: VITAL SIGNS: On arrival, blood pressure 140/88, pulse 93, respiratory rate 22, temperature 98.4, saturation 100% on 2 L, weight 120 kg. GENERAL: The patient is currently alert, awake, no obvious acute distress. HEENT: Head; normocephalic, atraumatic. Eyes; pupils round, reactive to light. Extraocular muscle intact. ENT; oropharynx within normal limits. Moist mucous membranes. No oral lesion. No pharyngeal erythema. No exudate. NECK: Supple. No JVD. No thyromegaly. No meningeal signs of irritation. LUNGS: Bilateral end-expiratory wheezing heard. Air entry reduced. No rales. No accessory muscles of respiration in use. CARDIAC: S1, S2 regular without any murmur. No gallop. No rub. ABDOMEN: Soft. Bowel sounds present. Nontender. Nondistended. No organomegaly. No mass. No suprapubic tenderness. Obesity noted. BACK: Unremarkable. No CVA tenderness. EXTREMITIES: Upper extremity; passive movement of all joints are normal. Lower extremities; no edema. Good distal pulsation. No calf tenderness. SKIN: No skin rash. HEMATOLOGIC: No lymphadenopathy. NEUROLOGIC: Nonfocal examination. SIGNIFICANT LABORATORY DATA: EKG showing normal sinus rhythm, occasional PVCs noted. Chest x-ray, based on my review, no acute cardiopulmonary process. CBC: WBC 6.8, hemoglobin 13.4, platelet 215. BMP: Sodium 139, potassium 3.9, chloride 106, carbon dioxide 22, anion gap 15, BUN 15, creatinine 0.79, glucose 93, calcium 9.3. LFT: AST 14, ALT 12, alkaline phosphatase 73, albumin 4.0. BNP less than 10. Cardiac enzyme negative x2. ASSESSMENT AND PLAN: 1. Acute asthma exacerbation, moderate, persistent. At this point, the patient is not improving with her home treatment, and the patient also did not improve after emergency room treatment. We will keep this patient in the hospital for observation. We will continue with Solu-Medrol 40 mg IV q.6 hourly, DuoNeb therapy every 4 hourly, Dulera 2 puff inhalation b.i.d., Mucinex 600 mg twice daily, empiric antibiotic therapy with Rocephin 1 g q.24 hour, and doxycycline 100 mg p.o. b.i.d. We will also add Singulair 10 mg p.o. daily and symptomatic treatment, we will address while in hospital. 2. Hypertension. We will continue with Coreg 6.25 mg p.o. b.i.d. Because of her asthma exacerbation, the patient is also taking another beta tamy which we will discontinue for now. 3. Morbid obesity with a BMI of 42. Dietary education given. Weight loss education given. Healthy lifestyle measure discussed with the patient. 4. Deep venous thrombosis prophylaxis not needed because we are expecting discharge in 24 hours. 5. Gastrointestinal prophylaxis. Protonix 40 mg p.o. daily. CODE STATUS: The patient is full code. The patient does not have any surrogate decision maker. DISPOSITION PLAN: Based on clinical course. Job ID: [id number]
== END 2019-05-08 17:58 | disposition home or self-care (01) ==
LOC: ERS 04:06 → OBSVTOIN 05:46 → INTOOBSV 05:46 → 2SW 05:46
PROVIDERS: ADMIT Internal Medicine; ATTEND Internal Medicine
DX: J45.41 Moderate persistent asthma with (acute) exacerbation (principal); I10 Essential (primary) hypertension; E66.01 Morbid (severe) obesity due to excess calories; M54.5 Low back pain; G89.29 Other chronic pain; F41.9 Anxiety disorder, unspecified; F32.9 Major depressive disorder, single episode, unspecified; Z68.41 Body mass index [BMI] 40.0-44.9, adult; Z88.2 Allergy status to sulfonamides; Z88.6 Allergy status to analgesic agent; Z79.899 Other long term (current) drug therapy
CPT/HCPCS: 36415; 71045; 80048; 80053; 83880; 84484; 85025; 93005; 94640; 96365; 96366; 96375; 96376; G0378; J0696; J1885; J2920; J2930; J3490; J7620

== ENCOUNTER 2020-09-28 09:58 | Outpatient (CLI) | payer OTHER ==
--- NOTE | 2020-09-28 10:38 | MMO ---
Bilateral MAMMO Bilat Screen DDI. CLINICAL HISTORY: Patient is 50 years old and is seen for screening. The patient has no family history of breast cancer. The patient has no personal history of cancer. VIEWS: The views performed were: bilateral craniocaudal and bilateral mediolateral oblique. FILMS COMPARED: The present examination has been compared to prior imaging studies performed at [place] [facility] on 11/17/2017 and 01/04/2019, and at [facility] on 10/05/2014 and 10/17/2014. This study has been interpreted with the assistance of computer-aided detection. MAMMOGRAM FINDINGS: There are scattered fibroglandular densities. There are two stable masses seen in the right breast. There are no suspicious masses, suspicious calcifications, or new areas of architectural distortion. IMPRESSION: THERE IS NO MAMMOGRAPHIC EVIDENCE OF MALIGNANCY. A ROUTINE FOLLOW-UP MAMMOGRAM IN 1 YEAR IS RECOMMENDED. ACR BI-RADS Category 2 - Benign finding MAMMOGRAPHY NOTE: 1. A negative mammogram report should not delay a biopsy if a dominant of clinically suspicious mass is present. 2. Approximately 10% to 15% of breast cancers are not detected by mammography. 3. Adenosis and dense breasts may obscure an underlying neoplasm. Reported by: ZARINA GRANT MD Electonically Signed: [id number]
== END 2020-09-28 09:59 | disposition home or self-care (01) ==
LOC: BICMAMMO 09:58
PROVIDERS: ATTEND Family Medicine
DX: Z12.31 Encounter for screening mammogram for malignant neoplasm of breast (principal)
CPT/HCPCS: 77067

== ENCOUNTER 2020-10-04 12:57 | Outpatient (CLI) | payer OTHER ==
--- NOTE | 2020-10-04 13:48 | ULT ---
ULTRASOUND DOPPLER DUPLEX VENOUS RIGHT LOWER EXTREMITY: DATE: 10/04/2020 HISTORY: 50 year old female with right lower extremity pain TECHNIQUE: Grayscale, color-flow, and spectral analysis, of major veins of right lower extremity. FINDINGS: There is demonstration of blood flow with normal compressibility, of the right common femoral, profun da femoral, greater saphenous, femoral, popliteal, and posterior tibial, veins. There is a 4 x 0.8 cm lymph node in the right upper medial thigh. IMPRESSION: 1) No deep venous thrombosis of right lower extremity. 2) enlarged lymph node at right proximal inner thigh.
== END 2020-10-04 12:58 | disposition home or self-care (01) ==
LOC: BICULT 12:57
PROVIDERS: ATTEND Family Medicine
DX: R60.9 Edema, unspecified (principal); R59.0 Localized enlarged lymph nodes

== ENCOUNTER 2020-10-15 10:50 | Outpatient (CLI) | payer OTHER ==
--- NOTE | 2020-10-15 11:38 | CT ---
CT abdomen and pelvis with IV contrast HISTORY: Pelvic lymphadenopathy. FINDINGS: The lung bases are clear. An exophytic 1.9 cm cyst projects medially from the cortex of the left kidney. The liver, right kidney, spleen, adrenal glands, and pancreas have a normal CT appearance. Incidental note of a retroaortic left renal vein. No evidence of bowel obstruction or inflammation. No enlarged lymph nodes are apparent within the abd omen or pelvis. Normal-appearing bilateral inguinal lymph nodes on the inferior most images. Degenerative changes of the thoracolumbar spine. Prominent ossification/osteophytosis posteriorly at the T5-6 level resulting in significant stenosis of the central canal. IMPRESSION : No CT evidence of pelvic adenopathy. No acute abnormalities are demonstrated.
[2020-10-15] MEDS ORDERED: Iopamidol-370 76% 500 ML 1 ML ONE (12:11)
== END 2020-10-15 10:51 | disposition home or self-care (01) ==
LOC: BICCT 10:50
PROVIDERS: ATTEND Family Medicine
DX: R59.0 Localized enlarged lymph nodes (principal)
CPT/HCPCS: 74177; Q9967

== ENCOUNTER 2022-02-11 07:58 | Emergency (ER) | payer OTHER | END 2022-02-11 08:31 | disposition home or self-care (01) | LOC: ERS 07:58 | DX: L03.011 Cellulitis of right finger (principal); I10 Essential (primary) hypertension; J44.9 Chronic obstructive pulmonary disease, unspecified; Z79.899 Other long term (current) drug therapy | CPT/HCPCS: 99283 ==

== ENCOUNTER 2022-03-03 08:57 | Emergency (ER) | payer OTHER ==
[2022-03-03 09:33] LABS: #Eosinphils 0.4 thou/uL (0.0-0.7); #Monocytes 0.5 thou/uL (0.11-0.59); #Neutrophils 2.4 thou/uL (1.40-6.50); %Basophils 0.6 % (0.0-1.0); %Eosinophils 8.1 % (0.0-10.0); %Lymphocytes 37.5 % (21.0-51.0); %Monocytes 8.5 % (0.0-10.0); %Neutrophils 45.3 % (42.0-75.0); Hemoglobin 13.1 g/dL (12.0-16.0); Mean Corpuscular HGB CONC 31.4 g/dL (32.0-36.0); Mean Corpuscular Hemoglobin 27.7 pg (27.0-31.0); Mean Corpuscular Volume 88.2 fL (78.0-98.0); Mean Platelet Volume 7.9 fL (7.4-10.4); Platelet Count 218 thou/uL (130-400); RBC Distribution Width 11.9 % (11.5-14.5); Red Blood Cell (RBC) Count 4.73 mill/uL (4.20-5.40); White Blood Cell (WBC) Count 5.4 thou/uL (4.8-10.8)
[2022-03-03 09:58] LABS: ALT (SGPT) 19 U/L (8-55); AST (SGOT) 18 U/L (5-34); Albumin 3.8 g/dL (3.5-5.0); Alkaline Phosphatase 60 U/L (40-110); Anion Gap 11 mmol/L (10-20); BUN (Urea Nitrogen) 20 mg/dL (9.8-20.1); Bilirubin, Total 0.4 mg/dL (0.2-1.2); Calc. Creatinine Clearance 0 mL/min (70-130); Calcium 9.2 mg/dL (7.8-10.44); Carbon Dioxide 26 mmol/L (22-29); Chloride 110 mmol/L (98-107); Globulin 2.9 g/dL (2.4-3.5); Glucose 91 mg/dL (70-105); Potassium 4.4 mmol/L (3.5-5.1); Protein, Total 6.7 g/dL (6.0-8.3); Sodium 143 mmol/L (136-145)
[2022-03-03 12:38] LABS: Troponin I Less than 0.010 ng/mL (< 0.028)
== END 2022-03-03 13:33 | disposition home or self-care (01) ==
LOC: ERS 08:57
DX: J44.1 Chronic obstructive pulmonary disease with (acute) exacerbation (principal); I10 Essential (primary) hypertension; Z79.899 Other long term (current) drug therapy; Z79.51 Long term (current) use of inhaled steroids
CPT/HCPCS: 36415; 71045; 80053; 84484; 85025; 93005

== ENCOUNTER 2022-09-25 14:14 | Outpatient (CLI) | payer OTHER | END 2022-09-25 14:15 | disposition home or self-care (01) | LOC: RAD 14:14 | PROVIDERS: ATTEND Internal Medicine | DX: R06.00 Dyspnea, unspecified (principal) | CPT/HCPCS: 71046 ==